=== PATIENT | male | born 1985 | race Caucasian/White ===

== ENCOUNTER 2020-12-21 11:25 | Observation (INO) ==
[2020-12-21] MEDS ORDERED: *HR* HYDROmorphone (PF) 1 MG/ML SYRINGE IVP STA (13:51)
[2020-12-21] MEDS ORDERED: Ondansetron 4 MG/2 ML VIAL IVP ONE (13:51)
[2020-12-21] MEDS ORDERED: Naloxone 0.4 MG/ML INJ IVP PRN (13:57)
[2020-12-21] MEDS ORDERED: Ondansetron 4 MG/2 ML VIAL IVP PRN (13:59)
[2020-12-21] MEDS: 0.9 % Sodium Chloride 1,000 ML IVC SCH (14:07)
[2020-12-21 14:27] LABS: Basophils % 0.3 %; Eosinophils % 0.1 %; Hematocrit 46.3 % (37.5-50.1); Hemoglobin 16.2 g/dL (12.9-16.9); Immature Granulocytes % 0.3 % (0-4); Lymphocytes # 1.7 K/mcL (0.6-4.6); Lymphocytes % 14.6 %; Mean Corpuscular Hemoglobin 30.1 pg (28.0-33.3); Mean Corpuscular Volume 85.9 fL (83.0-100.0); Mean Platelet Volume 10.1 fL (9.4-12.4); Monocytes # 0.6 K/mcL (0.0-1.3); Monocytes % 5.4 %; Neutrophils # 9.4 K/mcL (1.6-8.9); Platelet Count 348 K/mcL (140-400); Red Blood Count 5.39 M/mcL (4.19-5.50); Red Cell Distribution Width 13.4 % (11.5-14.5); Segmented Neutrophils % 79.3 %; White Blood Count 11.9 K/mcL (4.3-11.1)
[2020-12-21 14:48] LABS: BUN/Creatinine Ratio 9 (6-26); Blood Urea Nitrogen 10 mg/dL (6-20); Calcium 9.8 mg/dL (8.6-10.3); Carbon Dioxide 26 mEq/L (23-29); Chloride 104 mEq/L (98-107); Glucose 99 mg/dL (70-105); Magnesium 2.3 mg/dL (1.6-2.6); Osmolality,Calculated 283 (280-300); Phosphorous 2.7 mg/dL (2.7-4.5); Potassium 4.7 mEq/L (3.5-5.1); Sodium 137 mEq/L (136-145); eGFR For African Americans > 60 (> 60); eGFR For Non-African Americans > 60 (> 60)
[2020-12-21] MEDS: *HR* OxyCODONE Immed Rel 5 MG TABLET PO PRN ×2 (16:03→22:33)
[2020-12-22] MEDS: 0.9 % Sodium Chloride 1,000 ML IVC SCH (01:20)
[2020-12-22 03:41] LABS: Bilirubin,Urine Negative (Negative); Blood,Urine Negative (Negative); Clarity,Urine Clear (Clear); Color,Urine Light-Yellow (Yellow); Glucose,Urine (UA) Normal (Normal); Ketones,Urine Negative (Negative); Leukocyte Esterase,Urine Negative (Negative); Nitrite,Urine Negative (Negative); PH,Urine 6.5 pH Units (5.0-8.0); Protein,Urine Negative (Neg-Trace); Specific Gravity,Urine 1.013 (1.010-1.025); Urobilinogen,Urine Normal (Normal)
[2020-12-22] MEDS: *HR* OxyCODONE Immed Rel 5 MG TABLET PO PRN (04:39)
[2020-12-22] MEDS ORDERED: *HR* FentaNYL (PF) 100 MCG/2 ML VIAL ONE (16:12)
[2020-12-22] MEDS ORDERED: *HR* Midazolam HCl 2 MG/2 ML VIAL ONE (16:12)
[2020-12-22] MEDS ORDERED: *HR* Propofol 200 MG/20 ML VIAL IVP ONE (16:12)
[2020-12-22] MEDS ORDERED: Ondansetron 4 MG/2 ML VIAL ONE (16:16)
[2020-12-22] MEDS ORDERED: Lidocaine -MPF 2% 2 ML VIAL ONE (16:16)
[2020-12-22] MEDS ORDERED: Ondansetron 4 MG/2 ML VIAL IVP PRN (18:00)
[2020-12-22] MEDS ORDERED: Naloxone 0.4 MG/ML INJ IVP PRN (18:00)
[2020-12-22] MEDS ORDERED: Morphine Sulfate 2 MG/ML SYRINGE IVP ONE (19:45)
[2020-12-23 06:41] VITALS: BP 135/86; PULSE 77; TEMP 98; O2SAT 96
[2020-12-29 17:34] LABS: Calculi Mass 17 mg
== END 2020-12-23 11:35 | disposition home or self-care (01) ==
LOC: EMEROOARM 11:25 → 3BNU 11:25 → SUATTDRO 14:06 → 3BNU 14:41
PROVIDERS: ADMIT Internal Medicine; ATTEND Internal Medicine